=== PATIENT | male | born 1965 | race Caucasian/White ===

== ENCOUNTER 2020-04-23 15:30 | Observation (INO) ==
[2020-04-23] MEDS ORDERED: 0.9 % Sodium Chloride 500 ML IVC ONE (15:42)
[2020-04-23 16:18] LABS: Basophils % 0.5 %; Eosinophils # 0.2 K/mcL (0.0-0.6); Eosinophils % 3.3 %; Hemoglobin 15.7 g/dL (12.9-16.9); Immature Granulocytes % 0.3 % (0-4); Lymphocytes # 1.7 K/mcL (0.6-4.6); Lymphocytes % 26.3 %; Mean Corpuscular HGB Conc 34.1 g/dL (31.6-35.5); Mean Corpuscular Volume 93.7 fL (83.0-100.0); Mean Platelet Volume 10.4 fL (9.4-12.4); Monocytes # 0.7 K/mcL (0.0-1.3); Neutrophils # 3.7 K/mcL (1.6-8.9); Platelet Count 203 K/mcL (140-400); Red Blood Count 4.91 M/mcL (4.19-5.50); Red Cell Distribution Width 12.5 % (11.5-14.5); Segmented Neutrophils % 58.6 %; White Blood Count 6.3 K/mcL (4.3-11.1)
[2020-04-23 16:22] LABS: Prothrombin Time 11.9 Seconds (9.4-12.1)
[2020-04-23 16:24] LABS: Activated Partial Thrombo Time 31.3 Seconds (26.0-36.0)
[2020-04-23 16:44] LABS: BUN/Creatinine Ratio 7 (6-26); Blood Urea Nitrogen 6 mg/dL (6-20); Calcium 9.5 mg/dL (8.6-10.3); Carbon Dioxide 24 mEq/L (23-29); Chloride 102 mEq/L (98-107); Glucose 105 mg/dL (70-105); Osmolality,Calculated 282 (280-300); Potassium 3.7 mEq/L (3.5-5.1); Sodium 137 mEq/L (136-145); Troponin I < 0.03 ng/mL (< 0.04); eGFR For African Americans > 60 (> 60); eGFR For Non-African Americans > 60 (> 60)
[2020-04-23 16:58] LABS: Thyroid Stimulating Hormone 2.016 mcIU/mL (0.340-5.600)
[2020-04-23] MEDS ORDERED: Isovue-370 500 ML BOTTLE IVP ONE (17:11)
[2020-04-23] MEDS ORDERED: *HR* Heparin 5,000 UNIT/ML VIAL IVP PRN ×2 (17:18)
[2020-04-23] MEDS ORDERED: *HR* Heparin 5,000 UNIT/ML VIAL IVP ONE (17:18)
[2020-04-23] MEDS: DilTIAZem 50 MG/50 ML IV.SOLN IVC SCH (17:21)
[2020-04-23] MEDS ORDERED: Heparin 25,000UNIT/250ML 1/2NS 25,000 UNIT/250 ML IV.SOLN IVC SCH (17:30)
[2020-04-23] MEDS ORDERED: Naloxone 0.4 MG/ML INJ IVP PRN (17:40)
[2020-04-23 17:43] LABS: Hemoglobin 15.1 g/dL (12.9-16.9); Mean Corpuscular HGB Conc 34.3 g/dL (31.6-35.5); Mean Corpuscular Hemoglobin 31.9 pg (28.0-33.3); Mean Corpuscular Volume 92.8 fL (83.0-100.0); Mean Platelet Volume 9.7 fL (9.4-12.4); Platelet Count 202 K/mcL (140-400); Red Blood Count 4.74 M/mcL (4.19-5.50); Red Cell Distribution Width 12.3 % (11.5-14.5); White Blood Count 5.8 K/mcL (4.3-11.1)
[2020-04-23] MEDS ORDERED: Perflutren Lipid Microsphere 1.3 ML in 0.9 % Sodium Chloride 8.7 ML IVP PRN (17:43)
[2020-04-23 17:50] LABS: Heparin anti-factor XA UFH < 0.04 IU/mL (0.30-0.70)
[2020-04-23 17:51] LABS: Prothrombin Time 11.6 Seconds (9.4-12.1)
[2020-04-23] MEDS ORDERED: Ipratropium/Albuterol Neb 3 ML IH PRN (18:12)
[2020-04-23] MEDS: Aspirin 81 MG TAB.CHEW PO SCH (18:40)
[2020-04-23] MEDS: Metoprolol XL (24 HR) Succ 50 MG TAB.ER.24H PO SCH (20:01)
[2020-04-24] MEDS: DilTIAZem 50 MG/50 ML IV.SOLN IVC SCH (00:29)
[2020-04-24 01:37] LABS: Basophils % 0.7 %; Eosinophils # 0.6 K/mcL (0.0-0.6); Eosinophils % 11.4 %; Hematocrit 43.6 % (37.5-50.1); Hemoglobin 14.7 g/dL (12.9-16.9); Immature Granulocytes % 0.2 % (0-4); Lymphocytes # 2.3 K/mcL (0.6-4.6); Lymphocytes % 42.4 %; Mean Corpuscular HGB Conc 33.7 g/dL (31.6-35.5); Mean Corpuscular Hemoglobin 31.6 pg (28.0-33.3); Mean Corpuscular Volume 93.8 fL (83.0-100.0); Mean Platelet Volume 11.1 fL (9.4-12.4); Monocytes # 0.7 K/mcL (0.0-1.3); Neutrophils # 1.8 K/mcL (1.6-8.9); Platelet Count 184 K/mcL (140-400); Red Blood Count 4.65 M/mcL (4.19-5.50); Red Cell Distribution Width 12.7 % (11.5-14.5); Segmented Neutrophils % 32.3 %; White Blood Count 5.5 K/mcL (4.3-11.1)
[2020-04-24 02:12] LABS: BUN/Creatinine Ratio 13 (6-26); Blood Urea Nitrogen 11 mg/dL (6-20); Calcium 9.3 mg/dL (8.6-10.3); Carbon Dioxide 26 mEq/L (23-29); Chloride 103 mEq/L (98-107); Glucose 96 mg/dL (70-105); Magnesium 2.1 mg/dL (1.6-2.6); Osmolality,Calculated 283 (280-300); Phosphorous 3.4 mg/dL (2.7-4.5); Potassium 4.1 mEq/L (3.5-5.1); Sodium 137 mEq/L (136-145); eGFR For African Americans > 60 (> 60); eGFR For Non-African Americans > 60 (> 60)
[2020-04-24] MEDS ORDERED: Regadenoson 0.4 MG/5 ML SYRINGE IVP ONE (06:21)
[2020-04-24] MEDS ORDERED: lisinopriL 10 MG TABLET PO SCH (09:00)
[2020-04-24] MEDS: Metoprolol XL (24 HR) Succ 50 MG TAB.ER.24H PO SCH (09:18)
[2020-04-24] MEDS: Aspirin 81 MG TAB.CHEW PO SCH (09:19)
[2020-04-24] MEDS ORDERED: Acetaminophen 325 MG TABLET PO PRN (09:26)
[2020-04-24 10:19] VITALS: BP 127/84
[2020-04-25] MEDS ORDERED: Metoprolol XL (24 HR) Succ 50 MG TAB.ER.24H PO SCH (09:00)
== END 2020-04-24 14:03 | disposition home or self-care (01) ==
LOC: 3BNU 15:30 → EMEROOARM 15:30 → SUATTDRO 17:28 → 3BNU 18:30
PROVIDERS: ADMIT Family Medicine; ATTEND Internal Medicine